=== PATIENT | female | born 1985 | race African-American/Black ===

== ENCOUNTER 2022-12-21 17:18 | Emergency (ER) | payer OTHER, SELFPAY ==
[2022-12-21 17:28] VITALS: BP 142/88; PULSE 82; RESP 20; TEMP 36.3; O2SAT 100
--- NOTE | 2022-12-21 18:10 | ECG_ITS ---
Measurements Intervals [place] Rate: 64 P: 38 AR: 144 QRS: 63 QRSD: 77 T: 66 QT: 398 QTc: 411 Interpretive Statements SINUS RHYTHM WITH SINUS ARRHYTHMIA POSSIBLE LEFT ATRIAL ENLARGEMENT BASELINE WANDER- I, II, III BORDERLINE ECG NO PREVIOUS ECG AVAILABLE FOR COMPARISON Electronically Signed On 12-22-2022 6:39:58 [employer]BER by Mohamud Clal D.O.
--- NOTE | 2022-12-21 18:18 | PC.NURSE ---
pt c/o chest pain, ekg ordered and troponin
[2022-12-21 18:33] LABS: Basophils Percent Auto 0.4 % (0.2-1.2); Eosinophils Absolute Auto 0.3 K/mm3 (0-0.3); Eosinophils Percent Auto 7.6 % (0-4.4); Hematocrit 32.7 % (37.0-47.0); Hemoglobin 9.6 g/dL (12.0-15.0); Immature Granulocyte Absolute 0.01 K/mm3 (0.00-0.031); Immature Granulocyte Percent A 0.2 % (0-0.5); Lymphocytes Percent Auto 38.1 % (18.3-44.2); Mean Corpuscular HGB Conc 29.4 g/dl (32-36); Mean Corpuscular Hemoglobin 20.1 pg (26-34); Mean Corpuscular Volume 68.4 fl (80-100); Mean Platelet Volume 8.9 fl (7.4-10.4); Monocytes Absolute Auto 0.2 K/mm3 (0.1-0.6); Monocytes Percent Auto 5.4 % (2.6-8.5); Neutrophils Absolute Auto 2.2 K/mm3 (1.3-6.7); Neutrophils Percent Auto 48.3 % (45.5-73.1); Platelet Count Result 472 k/mm3 (150-375); Red Blood Count 4.78 M/mm3 (4.2-5.4); Red Cell Distribution Width 18.4 % (11.5-14.5); White Blood Count 4.5 K/mm3 (4.5-10.0)
[2022-12-21 19:01] LABS: Salicylate < 1.0 mg/dL (2-20); Troponin I < 0.012 ng/mL (0.000-0.034)
[2022-12-21 19:07] LABS: Acetaminophen < 10 ug/mL (10-30)
[2022-12-21 19:08] LABS: Ethanol < 10 mg/dL (<10)
[2022-12-21 19:09] LABS: Alanine Aminotransferase 27 U/L (6-35); Albumin Level 4.8 g/dL (3.5-5.1); Alkaline Phosphatase 60 U/L (38-126); Anion Gap 11 mmol/L (8-16); Aspartate Amino Transferase 28 U/L (14-36); Bilirubin,Total 0.4 mg/dL (0.2-1.3); Blood Urea Nitrogen 10 mg/dL (7-17); Calcium 9.6 mg/dL (8.4-10.2); Carbon Dioxide 23 mmol/L (22-30); Chloride 105 mmol/L (98-107); Estimated CRCL calculation 84 ml/min; Estimated Glomerular Filt Rate > 60; Glucose 92 mg/dL (65-110); Potassium 3.9 mmol/L (3.4-5.0); Sodium 139 mmol/L (137-145)
[2022-12-21 19:13] LABS: Benzodiazepines Screen Urine Positive (Negative)
[2022-12-21 19:15] LABS: Amphetamine Screen Urine Positive (Negative); Cannabinoid Screen Urine Negative (Negative); Methadone Screen Urine Negative (Negative); Opiate Screen Urine Negative (Negative); Phencyclidine Screen Urine Negative (Negative)
[2022-12-21 19:19] LABS: Cocaine Screen Urine Negative (Negative)
[2022-12-21 19:28] LABS: Barbiturate Screen Urine Negative (Negative)
[2022-12-21 19:29] LABS: Appearance Urine Cloudy (Clear); Bacteria Urine 3+ /hpf; Bilirubin Urine Negative (Negative); Blood Urine Negative (Negative); Color Urine Yellow (Yellow); Glucose Urine UA Negative (Negative); Ketones Urine Negative (Negative); Leukocyte Esterase Ur Negative LEU/UL (Negative); Nitrate Urine Negative (Negative); Non Pathogenic Casts 0-2; Protein Urine Negative (Negative); RBC Urine 0-2 /hpf (0-2); Specific Grav Ur 1.016 (1.001-1.035); Squamous Epithelial Cell Urine Many /hpf (Few); Urobilinogen Urine 0.2 mg/dL (<2.0)
[2022-12-21 19:30] LABS: Add Urine Microscopic? YES
--- NOTE | 2022-12-21 20:20 | ED.GENADULT ---
HPI - General Adult General Chief complaint: Unspecified Stated complaint: depression Time Seen by Provider: 12/21/22 19:32 Source: patient Mode of arrival: ambulatory Limitations: no limitations History of Present Illness HPI narrative: This is a 37 year old female that presents to the ER for worsening anxiety. Reports history of anxiety and depression. Reports she has PRN Xanax for this. She also takes Adderall for ADHD. She has had some increase stress in her life with balancing school. She presents to the ER for further resources for her mental health. Denies suicidal or homicidal ideations. Related Data Allergies Allergy/AdvReac Type Severity Reaction Status Date / Time No Known Allergies Allergy Mild Verified 12/21/22 19:35 Review of Systems Review of Systems: CONSTITUTIONAL: Denies fever PSYCHIATRIC: Reports anxiety and depression. All systems reviewed & are unremarkable except as noted in HPI and below PMFSH Past Medical History Medical History (Updated 12/21/22 @ 22:55 by Lakeisha Justice PA-C) History of ADHD History of anxiety Social History Social History (Updated 12/21/22 @ 20:21 by Lakeisha Justice PA-C) Smoking status: Never smoker Alcohol intake: current Substance use: never Exam Narrative: GENERAL: Well-appearing, well-nourished, and in no acute distress. HEAD: Normocephalic, atraumatic. EYES: EOMI. ENT: Nares clear, no rhinorrhea or epistaxis. Mucous membranes moist. Oropharynx without tonsillar hypertrophy exudate or other lesions. CHEST: Clear to auscultation. No respiratory distress. No wheezes rales or rhonchi HEART: Regular rate and rhythm. No murmur heard. Normal peripheral pulses. EXTREMITIES: Normal range of motion. No edema. SKIN: Warm, dry, no rash. NEURO: No focal deficits. Alert and oriented x3. PSYCH: Normal mood and affect Course Course Emergency Course: Patient evaluated by crisis. Given resources and safety planned Vital Signs Vital signs: Vital Signs Temperature 97.3 F L 12/21/22 17:28 Pulse Rate 82 12/21/22 17:28 Respiratory Rate 20 12/21/22 17:28 Blood Pressure 142/88 H 12/21/22 17:28 Pulse Oximetry 100 12/21/22 17:28 Oxygen Delivery Room Air 12/21/22 17:28 Temperature 97.3 F L 12/21/22 17:28 Pulse Rate 81 12/21/22 21:05 Respiratory Rate 19 12/21/22 21:05 Blood Pressure 138/79 12/21/22 21:05 Pulse Oximetry 100 12/21/22 21:05 Oxygen Delivery Room Air 12/21/22 17:28 Medical Decision Making MDM Narrative Medical decision making narrative: Patient presents to the emergency department for worsening anxiety recently. Does report increased stressors in her life. She has no thoughts of harming herself or anyone else. Was reporting some associated chest pain with her symptoms. Her vitals are stable. CBC does show a microcytic anemia with hemoglobin of 9.6. Patient does report note history of this. Reports she has heavy menstrual cycles. Metabolic panel without concerning findings. EKG without acute changes in baseline troponin is negative. UA without evidence of infection. Appears to be a contaminated catch. test is negative. Drug screen is positive for benzodiazepines and amphetamines. Patient was evaluated by crisis and given resources and safety plan. She is to follow up for further mental health evaluation and management. Also instructed to follow up with her primary provider for her anemia. She was given warnings to return to the ER Differential Diagnosis Differential Diagnosis: anxiety, depression, suicidal ideation Vital Signs Vital Signs: Vital Signs Temperature 97.3 F L 12/21/22 17:28 Pulse Rate 82 12/21/22 17:28 Respiratory Rate 20 12/21/22 17:28 Blood Pressure 142/88 H 12/21/22 17:28 Pulse Oximetry 100 12/21/22 17:28 Oxygen Delivery Room Air 12/21/22 17:28 Temperature 97.3 F L 12/21/22 17:28 Pulse Rate 81 12/21/22 21:05 Respiratory Rate 19
--- NOTE | 2022-12-21 20:30 | PC.NURSE ---
Pt medically cleared by JAYLYN Suazo to be seen by Crisis.
[2022-12-21 21:05] VITALS: BP 138/79; PULSE 81; RESP 19; O2SAT 100
--- NOTE | 2022-12-21 21:51 | PC.NURSE ---
This RN called crisis for ETA. Jennifer stated she was reaching out to player services representative as they were expected to be here by now.
[2022-12-21] MEDS: LORazepam (*CRX) 0.5 MG TABLET PO (22:24)
== END 2022-12-21 23:05 | disposition home or self-care (01) ==
PROVIDERS: Student in an Organized Health Care Education/Training Program; Emergency Provider Physician Assistant; PCP Family Medicine
DX: F41.9 Anxiety disorder, unspecified (principal); F32.A Depression, unspecified; D64.9 Anemia, unspecified; Z79.899 Other long term (current) drug therapy
CPT/HCPCS: 36415; 80053; 80307; 81001; 81025; 84443; 84484; 85025; 87086; 87088; 93005; 99284; A9270